=== PATIENT | female | born 1995 | race Caucasian/White ===

== ENCOUNTER 2017-11-27 19:54 | Emergency (ER) | payer BC ==
[~2017-11-27] VITALS: Ht 157.5 cm; Wt 69.4 kg
[~2017-11-27 19:54] MED LIST: AMOXICILLI400 MG/5 M PO; AMOXICILLIN 50500 MG PO; KEFLEX500 MG PO; TESSALON PERLE100 MG PO; TRIAMCINOLONE A80 G2 TOP; ZOFRAN4 MG PO
[2017-11-27 20:31] VITALS: BP 112/77
== END 2017-11-27 20:32 | disposition home or self-care (01) ==
LOC: M.ERS 19:54
DX: S09.93XA Unspecified injury of face, initial encounter (principal); Z88.1 Allergy status to other antibiotic agents; W22.8XXA Striking against or struck by other objects, initial encounter; Y93.89 Activity, other specified; Y92.89 Other specified places as the place of occurrence of the external cause; Y99.8 Other external cause status